=== PATIENT | male | born 2000 | race Caucasian/White ===

== ENCOUNTER → 2024-10-29 09:53 | Outpatient (REF) | payer BC, SELFPAY | LOC: RCS 09:53 | PROVIDERS: ATTENDING PHYSICIAN Family Medicine | DX: I49.9 Cardiac arrhythmia, unspecified (principal) | CPT/HCPCS: 93005 ==

== ENCOUNTER → 2025-07-14 11:20 | Outpatient (REF) | payer BC, SELFPAY | LOC: REG 11:20 | PROVIDERS: ATTENDING PHYSICIAN Family Medicine | DX: Z11.1 Encounter for screening for respiratory tuberculosis (principal) | CPT/HCPCS: 71046 ==